=== PATIENT | male | born 1940 | race Caucasian/White ===

== ENCOUNTER 2017-12-26 23:29 | Observation (INO) | payer MEDICARE, OTHER ==
[~2017-12-26] VITALS: Ht 172.7 cm; Wt 95.3 kg
[2017-12-26 23:33] VITALS: BP 158/85; PULSE 108; RESP 17; TEMP 97.8; O2SAT 95
[2017-12-27] VITALS (9 sets, daily range): BP systolic 134–165; BP diastolic 69–89; PULSE 78–102; RESP 16–20; TEMP 96.5; O2SAT 94–99
--- NOTE | 2017-12-27 00:08 | PD ---
HPI Chief Complaint: Chest Pain Time Seen by Provider: 00:03 Travel History International Travel<30 days: No Contact w/Intl Traveler<30days: No Traveled to known affect area: No History of Present Illness HPI Complaint of abdominal discomfort and chest fluttering/tightness that started Friday. He has had a chest fluttering before unsure of diagnosis. Abdominal pain described as being pressure, 1 out of 10, intermittent, 30-60 minutes in duration, nonradiating, worse with cough a lot on his side, burping alleviates the pain. He denies fever, chills, nausea, vomiting, chest pain, edema, recent travel. For some shortness of breath with the abdominal pain. Patient states that he drinks 2-3 beers approximately 2-3 times a week with last drink being this evening. No chest pain currently in ER. Patient is anxious. PFSH Past Medical History Diabetes: Yes (metformin) Respiratory: Yes (COPD) Social History Tobacco Use: No Allergies-Medications (Allergen,Severity, Reaction): Coded Allergies: No Known Allergies (Unverified , 12/26/17) Reported Meds & Prescriptions Reported Meds & Active Scripts Active Reported Coq-10 (Coenzyme Q10 (Ubidecarenone)) 30 Mg Cap Aspirin 81 Mg Chew 81 Mg CHEW DAILY Azithromycin 500 Mg Tab 500 Mg PO DAILY Metformin (Metformin HCl) 1,000 Mg Tab 1,000 Mg PO BIDPC Ranitidine (Ranitidine HCl) 150 Mg Tab 150 Mg PO DAILY Omeprazole 10 Mg Cap 10 Mg PO DAILY Simvastatin 20 Mg Tab 20 Mg PO DAILY Lotensin (Benazepril HCl) 20 Mg Tab 20 Mg PO DAILY Review of Systems Except as stated in HPI: all other systems reviewed are Neg Physical Exam Narrative GENERAL: No acute distress. SKIN: Focused skin assessment warm/dry. HEAD: Atraumatic. Normocephalic. EYES: Pupils equal and round. No scleral icterus. No injection or drainage. ENT: No nasal bleeding or discharge. Mucous membranes pink and moist. NECK: Trachea midline. No JVD. CARDIOVASCULAR: Tachycardic. No murmur appreciated. RESPIRATORY: No accessory muscle use. Clear to auscultation. Breath sounds equal bilaterally. GASTROINTESTINAL: Abdomen soft, epigastric tenderness, obese. MUSCULOSKELETAL: No obvious deformities. No clubbing. No cyanosis. No edema. NEUROLOGICAL: Awake and alert. No obvious cranial nerve deficits. Motor grossly within normal limits. Normal speech. PSYCHIATRIC: Appropriate mood and affect; insight and judgment normal. Data Data Last Documented VS Vital Signs Date Time Temp Pulse Resp B/P (MAP) Pulse Ox O2 Delivery O2 Flow Rate FiO2 12/27/17 02:22 98 18 138/79 (98) 99 12/27/17 01:28 Room Air 12/26/17 23:33 97.8 Orders Orders Complete Blood Count With Diff (12/27/17 00:03) Comprehensive Metabolic Panel (12/27/17 00:03) Lipase (12/27/17 00:03) Lactic Acid (12/27/17 00:03) Prothrombin Time / Inr (Pt) (12/27/17 00:03) Act Partial Throm Time (Ptt) (12/27/17 00:03) Iv Access Insert/Monitor (12/27/17 00:03) Ecg Monitoring (12/27/17 00:03) Oximetry (12/27/17 00:03) Pantoprazole Inj (Protonix Inj) (12/27/17 00:15) Sodium Chloride 0.9% Flush (Ns Flush) (12/27/17 00:15) Electrocardiogram (12/27/17 00:03) B-Type Natriuretic Peptide (12/27/17 00:03) Ckmb (Isoenzyme) Profile (12/27/17 00:03) Magnesium (Mg) (12/27/17 00:03) Troponin I (12/27/17 00:03) Abdomen, Flat & Upright (12/27/17 ) Sodium Chloride 0.9% Flush (Ns Flush) (12/27/17 00:15) Thyroid Stimulating Hormone (12/27/17 00:05) Aspirin (Aspirin) (12/27/17 00:30) Sodium Chlorid 0.9% 500 Ml Inj (Ns 500 M (12/27/17 01:15) Ct Abd/Pel W Iv Contrast(Rout) (12/27/17 01:10) Lorazepam Inj (Ativan Inj) (12/27/17 01:30) Sodium Chlor 0.9% 1000 Ml Inj (Ns 1000 M (12/27/17 01:30) Iohexol 350 Inj (Omnipaque 350 Inj) (12/27/17 23:30) Chest, Single Ap (12/27/17 03:04) Place In Observation (12/27/17 03:15) Activity Bed Rest With Brp (12/27/17 03:15) Vital Signs (Adult) Q4H (12/27/17 03:15) Cardiac Rhythm .As Directed (12/27/17 03:15) Notify Dr: Other .PRN (12/27/17 03:15) Notify DrAlicia Parameters (12/27/17 03:15) Resp Oxygen Nasal Cannula (12/27/17 ) Diet Npo (12/27/17 Breakfast) Ckmb (Isoenzyme) Profile (12/27/17 03:15) Ckmb (Isoenzyme) Profile (12/27/17 06:15) Troponin I (12/27/17 03:15) Troponin I (12/27/17 06:15) Electrocardiogram (12/27/17 03:15) Electrocardiogram (12/27/17 06:15) ^ Obtain (12/27/17 03:15) Sodium Chloride 0.9% Flush (Ns Flush) (12/27/17 03:15) Sodium Chloride 0.9% Flush (Ns Flush) (12/27/17 09:00) Ondansetron Inj (Zofran Inj) (12/27/17 03:15) Aspirin (Aspirin) (12/27/17 09:00) Sales Representative [facility] / Telemetry PAUL.Q8H (12/27/17 03:15) Heparin Inj (Heparin Inj) (12/27/17 06:00) Bedside Glucose PAUL.CSUGAR (12/27/17 03:15) Blood Glucose Goal (Criteria) (12/27/17 03:15) Hypoglycemia 70 Mg/Dl Or < (12/27/17 03:15) Notify Dr: Other (12/27/17 03:15) Dextrose 50% In Rafia (Vial) Inj (D50w (Vi (12/27/17 03:15) Glucagon Inj (Glucagon Inj) (12/27/17 03:15) Insulin Aspart Supplemtl Scale (Novolog (12/27/17 08:00) Admit Order (Ed Use Only) (12/27/17 03:19) Lactic Acid Sepsis Protocol (12/27/17 03:20) Labs Laboratory Tests Test 12/27/17 00:10 White Blood Count 8.1 TH/MM3 Red Blood Count 4.36 MIL/MM3 Hemoglobin 14.7 GM/DL Hematocrit 43.1 % Mean Corpuscular Volume 98.9 FL Mean Corpuscular Hemoglobin 33.8 PG Mean Corpuscular Hemoglobin Concent 34.2 % Red Cell Distribution Width 12.3 % Platelet Count 216 TH/MM3 Mean Platelet Volume 10.6 FL Neutrophils (%) (Auto) 62.4 % Lymphocytes (%) (Auto) 27.6 % Monocytes (%) (Auto) 6.4 % Eosinophils (%) (Auto) 2.5 % Basophils (%) (Auto) 1.1 % Neutrophils # (Auto) 5.1 TH/MM3 Lymphocytes # (Auto) 2.2 TH/MM3 Monocytes # (Auto) 0.5 TH/MM3 Eosinophils # (Auto) 0.2 TH/MM3 Basophils # (Auto) 0.1 TH/MM3 CBC Comment AUTO DIFF Differential Comment AUTO DIFF CONFIRMED Prothrombin Time 10.0 SEC Prothromb Time International Ratio 1.0 RATIO Activated Partial Thromboplast Time 27.8 SEC Blood Urea Nitrogen 8 MG/DL Creatinine 0.89 MG/DL Random Glucose 142 MG/DL Total Protein 7.8 GM/DL Albumin 3.8 GM/DL Calcium Level 9.0 MG/DL Magnesium Level 1.8 MG/DL Alkaline Phosphatase 69 U/L Aspartate Amino Transf (AST/SGOT) 23 U/L Alanine Aminotransferase (ALT/SGPT) 38 U/L Total Bilirubin 0.3 MG/DL Sodium Level 140 MEQ/L Potassium Level 3.7 MEQ/L Chloride Level 106 MEQ/L Carbon Dioxide Level 24.9 MEQ/L Anion Gap 9 MEQ/L Estimat Glomerular Filtration Rate 83 ML/MIN Lactic Acid Level 2.7 mmol/L Total Creatine Kinase 58 U/L Troponin I LESS THAN 0.02 NG/ML B-Type Natriuretic Peptide 4 PG/ML Lipase 219 U/L MDM Medical Decision Making Medical Screen Exam Complete: Yes Emergency Medical Condition: Yes Interpretation(s) ECG: Sinus tachycardia 106, Q-wave in lead III; Labs: CBC, coags, lipase within normal limits; lactate elevated; cardiac enzymes within normal limits CXR: FINDINGS: The heart size is normal. There is mild increased density at the left base. The right lung is clear. No effusion is seen. CONCLUSION: Mild suspected atelectasis at the left lateral lung base. Last Impressions Abdomen/Pelvis CT 12/27/17 0110 Signed Impressions: CONCLUSION: 1. Diverticula being extremely numerous in the sigmoid region. 2. Hepatic steatosis. Abdomen X-Ray 12/27/17 0000 Signed Impressions: CONCLUSION: No acute abnormality is seen. Differential Diagnosis Peptic ulcer disease, pancreatitis, GERD, gastritis, ACS, cholecystitis, Narrative Course Patient presents emergency department complaining of chest fluttering and epigastric abdominal pain. Patient placed on monitor car operator, IV access obtained, EKG and labs and x-ray ordered. Patient also given 40 mg IV Protonix , ASA 325mg po. 01:19-> Patient's lactate is elevated, give 1 L IV normal saline and get CT of abdomen and pelvis.Given 1 mg IV ativan to facilitate CT scan as patient claustrophobic. Remained chest pain free in ER. Diagnosis Primary Impression: Chest pain Qualified Codes: R07.9 - Chest pain, unspecified Additional Impression: Abdominal pain Qualified Codes: R10.13 - Epigastric pain Admitting Information Admitting Physician Requests: Observation Condition: Stable Umm Vitale MD Dec 27, 2017 00:08
[2017-12-27] MEDS ORDERED: PANTOPRAZOLE SODIUM 40 MG VIAL IVP ONE (00:15)
[2017-12-27] MEDS ORDERED: SODIUM CHLORIDE 0.9% FLUSH 10 ML FLUSH IV FLUSH PRN ×3 (00:15→03:15)
[2017-12-27] MEDS ORDERED: ASPIRIN 325 MG TAB PO ONE (00:30)
[2017-12-27 00:34] LABS: AUTOMATED NEUTROPHIL # 5.1 TH/MM3 (1.8-7.7); BASOPHIL # 0.1 TH/MM3 (0-0.2); BASOPHIL % 1.1 % (0.0-2.0); EOSINOPHIL # 0.2 TH/MM3 (0-0.4); EOSINOPHIL % 2.5 % (0.0-4.0); HEMATOCRIT 43.1 % (39.0-51.0); HEMOGLOBIN 14.7 GM/DL (13.0-17.0); LYMPH % 27.6 % (9.0-44.0); LYMPHOCYTE # 2.2 TH/MM3 (1.0-4.8); MEAN CELL VOLUME 98.9 FL (80.0-100.0); MEAN CORPUSCULAR HEMOGLOBIN 33.8 PG (27.0-34.0); MEAN CORPUSCULAR HGB CONC 34.2 % (32.0-36.0); MEAN PLATELET VOLUME 10.6 FL (7.0-11.0); MONO % 6.4 % (0.0-8.0); MONOCYTE # 0.5 TH/MM3 (0-0.9); NEUT % 62.4 % (16.0-70.0); PLATELET COUNT 216 TH/MM3 (150-450); RED BLOOD COUNT 4.36 MIL/MM3 (4.50-5.90); RED CELL DISTRIBUTION WIDTH 12.3 % (11.6-17.2); WHITE BLOOD COUNT 8.1 TH/MM3 (4.0-11.0)
--- NOTE | 2017-12-27 00:44 | RADRPT ---
EXAM DATE: 12/27/2017 12:41 AM EDT AGE/SEX: 77 years / Male INDICATIONS: Bilateral upper quadrant abdominal pressure. CLINICAL DATA: This is the patient's initial encounter. Patient reports that signs and symptoms have been present for 2 days and indicates a pain score of 3/10. MEDICAL/SURGICAL HISTORY: Chronic obstructive pulmonary disease. Hypertension. Diabetes None. COMPARISON: No prior [facility] exams available for comparison. FINDINGS: Supine and upright views of the abdomen were performed. The abdominal bowel gas pattern is normal. No air-fluid levels are seen. No abnormal masses, calcifications, or organomegaly is seen. The visualiz ed lower lungs are clear. No evidence of free intraperitoneal gas. Spurs are seen in the lumbar spine . Phleboliths are seen in the left lower pelvis. CONCLUSION: No acute abnormality is seen. Electronically signed by: Fidel Emerson MD 12/27/2017 12:42 AM EDT
[2017-12-27 00:49] LABS: CHLORIDE 106 MEQ/L (98-107); SODIUM (NA) 140 MEQ/L (136-145)
[2017-12-27 00:54] LABS: ALBUMIN 3.8 GM/DL (3.4-5.0); BICARBONATE 24.9 MEQ/L (21.0-32.0); BLOOD UREA NITROGEN 8 MG/DL (7-18); GLUCOSE,RANDOM 142 MG/DL (74-106); MAGNESIUM 1.8 MG/DL (1.5-2.5)
[2017-12-27 00:56] LABS: ALT (GPT) 38 U/L (12-78); AST (GOT) 23 U/L (15-37); CREATININE 0.89 MG/DL (0.60-1.30); GLOMERULAR FILTRATION RATE 83 ML/MIN (>89)
[2017-12-27 00:58] LABS: TOTAL BILIRUBIN ADULT 0.3 MG/DL (0.2-1.0); TOTAL PROTEIN 7.8 GM/DL (6.4-8.2)
[2017-12-27 00:59] LABS: ALKALINE PHOSPHATASE 69 U/L (45-117)
[2017-12-27 01:02] LABS: TROPONIN I LESS THAN 0.02 NG/ML (0.02-0.05)
[2017-12-27] MEDS ORDERED: ASPI-516 CHEW (01:03)
[2017-12-27] MEDS ORDERED: LOTE20TA PO (01:03)
[2017-12-27] MEDS ORDERED: COQ-30CA2 (01:03)
[2017-12-27] MEDS ORDERED: OMEP10CA PO (01:03)
[2017-12-27] MEDS ORDERED: METF1000 PO (01:03)
[2017-12-27] MEDS ORDERED: SIMV20TA PO (01:03)
[2017-12-27] MEDS ORDERED: RANI150T PO (01:03)
[2017-12-27] MEDS ORDERED: AZIT500T2 PO (01:03)
[2017-12-27] MEDS ORDERED: SODIUM CHLORID 0.9% 500 ML INJ 500 ML IV ONE (01:15)
[2017-12-27] MEDS ORDERED: SODIUM CHLOR 0.9% 1000 ML INJ 1,000 ML IV ONE (01:30)
[2017-12-27] MEDS ORDERED: LORazepam 2 MG/ML VIAL IV PUSH ONE (01:30)
--- NOTE | 2017-12-27 02:44 | RADRPT ---
EXAM DATE: 12/27/2017 2:25 AM EDT AGE/SEX: 77 years / Male INDICATIONS: ABDOMINAL DISCOMFORT CLINICAL DATA: This is the patient's initial encounter. Patient reports that signs and symptoms have been present for 1 day and indicates a pain score of 1/10. MEDICAL/SURGICAL HISTORY: Diabetes. Chronic obstructive pulmonary disease. None. ORAL CONTRAST: No oral contrast ingested. RADIATION DOSE: 17.55 CTDI (mGy) COMPARISON: No prior [facility] exams available for comparison. TECHNIQUE: Multiple contiguous axial images were obtained through the abdomen and pelvis following b olus infusion of 82 ml Omnipaque 350 (iohexol) nonionic water-soluble contrast as a single exam dos e. No oral contrast ingested. Using automated exposure control and adjustment of the mA and/or kV ac cording to patient size, the radiation dose was kept as low as reasonably achievable to obtain optima l diagnostic quality images. FINDINGS: Lower Lungs: The visualized lower lungs are clear. Liver: There is decreased attenuation throughout the liver. There are calcifications seen at the left lobe of the liver. These are likely related to granulomas. Spleen: Homogeneous density without enlargement. Pancreas: Unremarkable without mass or calcification. Kidneys: Normal in size and shape. No evidence of mass or hydronephrosis. Adrenal Glands: Unremarkable. Aorta: There are scattered atherosclerotic calcifications. No aneurysm is seen. Bowel/Mesentery: There is a 3.5 cm duodenal diverticulum at the second portion of the duodenum. Ther e are colonic diverticula seen throughout the colon being most numerous at the sigmoid region. Surrou nding inflammatory change is not seen. Abdominal Wall: Intact. Retroperitoneum: No evidence of adenopathy in the retrocrural, para-aortic, or deep pelvic regions. Bladder: Contours are smooth. Reproductive Organs: No abnormal masses or calcifications seen. Inguinal: The inguinal region is unremarkable without evidence of adenopathy. Bony Structures: There is scattered degenerative change in the lumbar spine. CONCLUSION: 1. Diverticula being extremely numerous in the sigmoid region. 2. Hepatic steatosis. Electronically signed by: Fidel Emerson MD 12/27/2017 2:43 AM EDT
[2017-12-27] MEDS ORDERED: DEXTROSE 50% IN WATER 50 ML VIAL(D50) IV PUSH PRN (03:15)
[2017-12-27] MEDS ORDERED: ONDANSETRON HCL 4 MG/2 ML VIAL IV PUSH PRN (03:15)
[2017-12-27] MEDS ORDERED: GLUCAGON 1 MG/ML VIAL OTHER PRN (03:15)
--- NOTE | 2017-12-27 03:50 | RADRPT ---
EXAM DATE: 12/27/2017 3:37 AM EDT AGE/SEX: 77 years / Male INDICATIONS: Chest pain. CLINICAL DATA: This is the patient's initial encounter. Patient reports that signs and symptoms have been present for 2 days and indicates a pain score of 7/10. MEDICAL/SURGICAL HISTORY: . Chronic obstructive pulmonary disease. Hypertension. Diabetes Non e. COMPARISON: No prior [facility] exams available for comparison. FINDINGS: The heart size is normal. There is mild increased density at the left base. The right lung is clear. No effusion is seen. CONCLUSION: Mild suspected atelectasis at the left lateral lung base. Electronically signed by: Fidel Emerson MD 12/27/2017 3:49 AM EDT
[2017-12-27 04:23] LABS: TROPONIN I LESS THAN 0.02 NG/ML (0.02-0.05)
[2017-12-27] MEDS: HEPARIN SODIUM - SQ 10,000 UNITS/ML VIAL SQ SCH ×2 (06:12→13:01)
[2017-12-27 06:59] LABS: TROPONIN I LESS THAN 0.02 NG/ML (0.02-0.05)
[2017-12-27] MEDS: INSULIN ASPART SUPPLEMENTAL SCALE SQ SCH ×2 (08:00→12:00)
--- NOTE | 2017-12-27 08:18 | HHI.HP ---
[facility] Service [place] [facility] Primary Care Physician Sunday Forte MD Admission Diagnosis Chest pain, abdominal pain, diabetic Diagnoses: (1) Chest pain (2) Abdominal pain Chief Complaint: Chest pain/abdominal pain Travel History International Travel<30 Days: No Contact w/Intl Traveler <30 Da: No Traveled to Known Affected Are: No History of Present Illness This is a pleasant 77-year-old male patient with a known medical history of diabetes and COPD who complains of mid epigastric/chest pain that started yesterday. Patient states that over the past month he has seen his primary care doctor for upper respiratory congestion and cough, was placed on a Z-Stef initially for 5 days, the symptoms did improve initially and then a couple weeks later he developed a cough with yellow colored phlegm in placed on another round of azithromycin. Patient is supposed to finish his dose of antibiotics in 3 days. Patient also complains of midepigastric pressure, rated a 1 out of 10 on pain scale, does admit to associated shortness of breath and difficulty breathing with the pain, patient states the pain is intermittent and comes and goes with no known alleviating or aggravating factors. He denies ever having this type of sensation before. He denies following with a any commodity buyer. Denies ever having a previous stress test in the past. Patient denies any associated nausea, vomiting or diaphoresis with the pain. He does admit to having a colonoscopy a year ago with no significant findings. Does have history of hiatal hernia. Admits to drinking alcohol 3-4 beers a week. Does admit to a significant family history of cardiovascular disease. Denies any recent fevers, chills or dysuria. Review of Systems Constitutional: DENIES: Fatigue, Fever, Chills Respiratory: COMPLAINS OF: Cough, Sputum production, DENIES: Shortness of breath Cardiovascular: COMPLAINS OF: Chest pain, DENIES: Palpitations Gastrointestinal: COMPLAINS OF: Abdominal pain, DENIES: Black stools, Bloody stools, Constipation, Diarrhea, Nausea, Vomiting Musculoskeletal: DENIES: Joint pain Hematologic/lymphatic: DENIES: Bruising Immunologic/allergic: DENIES: Eczema Neurologic: DENIES: Abnormal gait Psychiatric: DENIES: Anxiety Except as stated in HPI: all other systems reviewed are Neg Past Family Social History Past Medical History Diabetes COPD Past Surgical History Denies any previous surgery. Reported Medications Active Reported Coq-10 (Coenzyme Q10 (Ubidecarenone)) 30 Mg Cap Aspirin 81 Mg Chew 81 Mg CHEW DAILY Azithromycin 500 Mg Tab 500 Mg PO DAILY Metformin (Metformin HCl) 1,000 Mg Tab 1,000 Mg PO BIDPC Ranitidine (Ranitidine HCl) 150 Mg Tab 150 Mg PO DAILY Omeprazole 10 Mg Cap 10 Mg PO DAILY Simvastatin 20 Mg Tab 20 Mg PO DAILY Lotensin (Benazepril HCl) 20 Mg Tab 20 Mg PO DAILY Allergies: Coded Allergies: No Known Allergies (Unverified , 12/26/17) Active Ordered Medications Current Medications Medications (Trade) Dose Ordered Sig/Osbaldo Route Start Time Stop Time Status Last Admin (NS Flush) 2 ml UNSCH PRN IV FLUSH 12/27/17 03:15 (NS Flush) 2 ml BID IV FLUSH 12/27/17 09:00 12/27/17 09:00 (Zofran Inj) 4 mg Q6H PRN IV PUSH 12/27/17 03:15 (Aspirin) 325 mg DAILY PO 12/27/17 09:00 12/27/17 09:11 (Heparin Inj) 5,000 units Q8HR SQ 12/27/17 06:00 12/27/17 06:12 (D50w (Vial) Inj) 50 ml UNSCH PRN IV PUSH 12/27/17 03:15 (Glucagon Inj) 1 mg UNSCH PRN OTHER 12/27/17 03:15 (NovoLOG SUPPLEMENTAL SCALE) 1 ACHS SLIDING SCALE SQ 12/27/17 08:00 (Prinivil) 20 mg DAILY PO 12/27/17 09:00 12/27/17 09:11 (Protonix) 20 mg DAILY PO 12/27/17 09:00 12/27/17 09:10 Non-Formulary Medication 150 mg DAILY PO 12/27/17 09:00 (Pravachol) 40 mg DAILY PO 12/27/17 09:00 12/27/17 09:11 Family History Significant family history of cardiovascular disease, mother had an NE and CABG in her 70s, 2 brothers and one sister also had NE in their 50s. Social History Denies any tobacco or illicit drug use. Patient admits to drinking 3-4 beers per week. Physical Exam Vital Signs Vital Signs Date Time Temp Pulse Resp B/P (MAP) Pulse Ox O2 Delivery O2 Flow Rate FiO2 12/27/17 07:29 83 20 134/69 (90) 96 12/27/17 06:20 78 16 163/85 (111) 99 Room Air 12/27/17 04:14 94 21 12/27/17 04:06 92 16 158/89 (112) 99 Room Air 12/27/17 02:22 98 18 138/79 (98) 99 12/27/17 01:28 102 16 137/89 (105) 99 Room Air 12/27/17 00:59 101 18 165/85 (111) 98 Room Air 12/27/17 00:02 101 18 96 Room Air 12/27/17 00:02 101 18 96 12/26/17 23:33 97.8 108 17 158/85 (109) 95 Physical Exam GENERAL: Well-developed, well-nourished patient in NAD. SKIN: Warm and dry. No rash. HEAD: Normocephalic. Atraumatic. EYES: Pupils equal and round. No scleral icterus. No injection or drainage. ENT: No nasal bleeding or discharge. Mucous membranes pink and moist. NECK: Supple. Trachea midline. CARDIOVASCULAR: Regular rate and rhythm. S1, S2 noted. No murmur appreciated. No chest pain to palpation RESPIRATORY: No accessory muscle use. Clear to auscultation. Breath sounds equal bilaterally. GASTROINTESTINAL: Abdomen soft, non-tender, nondistended. Normoactive bowel sounds x4. MUSCULOSKELETAL: No obvious deformities. Extremities without clubbing, cyanosis , or edema. NEUROLOGICAL: Awake and alert. No obvious cranial nerve deficits. Motor grossly within normal limits. 5/5 muscle strength in bilateral upper and lower extremities. Normal speech. PSYCHIATRIC: Appropriate mood and affect; insight and judgment normal. Laboratory Laboratory Tests Test 12/27/17 00:10 12/27/17 03:50 12/27/17 06:15 White Blood Count 8.1 Red Blood Count 4.36 Hemoglobin 14.7 Hematocrit 43.1 Mean Corpuscular Volume 98.9 Mean Corpuscular Hemoglobin 33.8 Mean Corpuscular Hemoglobin Concent 34.2 Red Cell Distribution Width 12.3 Platelet Count 216 Mean Platelet Volume 10.6 Neutrophils (%) (Auto) 62.4 Lymphocytes (%) (Auto) 27.6 Monocytes (%) (Auto) 6.4 Eosinophils (%) (Auto) 2.5 Basophils (%) (Auto) 1.1 Neutrophils # (Auto) 5.1 Lymphocytes # (Auto) 2.2 Monocytes # (Auto) 0.5 Eosinophils # (Auto) 0.2 Basophils # (Auto) 0.1 CBC Comment AUTO DIFF Differential Comment AUTO DIFF CONFIRMED Prothrombin Time 10.0 Prothromb Time International Ratio 1.0 Activated Partial Thromboplast Time 27.8 Blood Urea Nitrogen 8 Creatinine 0.89 Random Glucose 142 Total Protein 7.8 Albumin 3.8 Calcium Level 9.0 Magnesium Level 1.8 Alkaline Phosphatase 69 Aspartate Amino Transf (AST/SGOT) 23 Alanine Aminotransferase (ALT/SGPT) 38 Total Bilirubin 0.3 Sodium Level 140 Potassium Level 3.7 Chloride Level 106 Carbon Dioxide Level 24.9 Anion Gap 9 Estimat Glomerular Filtration Rate 83 Lactic Acid Level 2.7 1.3 Total Creatine Kinase 58 51 50 Troponin I LESS THAN 0.02 LESS THAN 0.02 LESS THAN 0.02 B-Type Natriuretic Peptide 4 Lipase 219 Thyroid Stimulating Hormone 3rd Gen 3.070 Result Diagram: 12/27/17 0010 12/27/17 0010 Imaging Last Impressions Chest X-Ray 12/27/17 0304 Signed Impressions: CONCLUSION: Mild suspected atelectasis at the left lateral lung base. Abdomen/Pelvis CT 12/27/17 0110 Signed Impressions: CONCLUSION: 1. Diverticula being extremely numerous in the sigmoid region. 2. Hepatic steatosis. Abdomen X-Ray 12/27/17 0000 Signed Impressions: CONCLUSION: No acute abnormality is seen. Septic Shock Reassessment Septic shock perfusion: reassessment completed Caprini VTE Risk Assessment Caprini VTE Risk Assessment: Mod/High Risk (score >= 2) Caprini Risk Assessment Model Point Value = 1 Point Value = 2 Point Value = 3 Point Value = 5 Age 41-60 Minor surgery BMI > 25 kg/m2 Swollen legs Varicose veins or History of unexplained or recurrent spontaneous Oral contraceptives or hormone replacement Sepsis (< 1 month) Serious lung disease, including pneumonia (< 1 month) Abnormal pulmonary function Acute myocardial infarction Congestive heart failure (< 1 month) History of inflammatory bowel disease Medical patient at bed rest Age 61-74 Arthroscopic surgery Major open surgery (> 45 min) Laparoscopic surgery (> 45 min) Malignancy Confined to bed (> 72 hours) Immobilizing plaster cast Central venous access Age >= 75 History of VTE Family history of VTE Factor V Leiden Prothrombin [id number] Lupus anticoagulant Anticardiolipin antibodies Elevated serum homocysteine Heparin-induced thrombocytopenia Other congenital or acquired thrombophilia Stroke (< 1 month) Elective arthroplasty Hip, pelvis, or leg fracture Acute spinal cord injury (< 1 month) Prophylaxis Regimen Total Risk Factor Score Risk Level Prophylaxis Regimen 0-1 Low Early ambulation 2 Moderate Order ONE of the following: *Sequential Compression Device (SCD) *Heparin 5000 units SQ BID 3-4 Higher Order ONE of the following medications: *Heparin 5000 units SQ TID *Enoxaparin/Lovenox 40 mg SQ daily (WT < 150 kg, CrCl > 30 mL/min) *Enoxaparin/Lovenox 30 mg SQ daily (WT < 150 kg, CrCl > 10-29 mL/min) *Enoxaparin/Lovenox 30 mg SQ BID (WT < 150 kg, CrCl > 30 mL/min) AND/OR *Sequential Compression Device (SCD) 5 or more Highest Order ONE of the following medications: *Heparin 5000 units SQ TID (Preferred with Epidurals) *Enoxaparin/Lovenox 40 mg SQ daily (WT < 150 kg, CrCl > 30 mL/min) *Enoxaparin/Lovenox 30 mg SQ daily (WT < 150 kg, CrCl > 10-29 mL/min) *Enoxaparin/Lovenox 30 mg SQ BID (WT < 150 kg, CrCl > 30 mL/min) AND *Sequential Compression Device (SCD) Assessment and Plan Problem List: (1) Chest pain ICD Code: R07.9 - Chest pain, unspecified Status: Acute Plan: Patient has been admitted to the chest pain center for observation. Serial EKGs and serial troponins have been ordered for ruling out ACS purposes. Troponin trend flat. EKG reviewed showing normal sinus rhythm with controlled heart rate, no ST changes. Patient was given aspirin in ED. pressure has somewhat resolved. Was also given Protonix for abdominal pain. She does have a significant family medical history of cardiovascular disease, does admit to a history of smoking quit in 1967. Also has diabetes and hyperlipidemia. Denies ever having a stress test in the past. Will undergo Lexiscan this morning to further rule out any ischemia. Further treatment plan and will depend on nuclear imaging results. Will continue home statin. (2) Abdominal pain ICD Code: R10.9 - Unspecified abdominal pain Status: Acute Plan: Will continue Protonix. Add Maalox. Dominant/pelvis CT reviewed showing diverticula. No diverticulitis. No acute findings. (3) Upper respiratory infection ICD Code: J06.9 - Acute upper respiratory infection, unspecified Plan: Patient is being treated outpatient with azithromycin. We will continue course of antibiotics. Chest x-ray showing mild atelectasis. No pneumonia. (4) Hypertension ICD Code: I10 - Essential (primary) hypertension Plan: Chronic. We will continue home lisinopril. Mildly elevated, will continue to monitor blood pressure trends. (5) Diabetes ICD Code: E11.9 - Type 2 diabetes mellitus without complications Plan: Will Accu-Chek before meals at bedtime, sliding scale, cover as needed. Monitor for hypoglycemia. DVT prophylaxis: SCDs. Heparin. Problem Qualifiers (1) Chest pain: Qualified Codes: R07.9 - Chest pain, unspecified (2) Abdominal pain: Qualified Codes: R10.13 - Epigastric pain Christin Zambrano Dec 27, 2017 08:18
[2017-12-27] MEDS ORDERED: LISINOPRIL 20 MG TAB PO SCH (09:00)
[2017-12-27] MEDS ORDERED: PANTOPRAZOLE SOD 20 MG DELAYED RELEASE TAB PO SCH (09:00)
[2017-12-27] MEDS ORDERED: NON-FORMULARY DRUG (Ranitidine 150 MG) PO SCH (09:00)
[2017-12-27] MEDS ORDERED: PRAVASTATIN SOD 40 MG TAB PO SCH (09:00)
[2017-12-27] MEDS ORDERED: SODIUM CHLORIDE 0.9% FLUSH 10 ML FLUSH IV FLUSH SCH (09:00)
[2017-12-27] MEDS ORDERED: ASPIRIN 325 MG TAB PO SCH (09:00)
[2017-12-27] MEDS ORDERED: ALUMINUM/MAGNESIUM/SIMETH 30 ML CUP PO ONE (11:15)
[2017-12-27] MEDS ORDERED: AZITHROMYCIN 250 MG TAB PO SCH (12:00)
[2017-12-27] MEDS ORDERED: REGADENOSON INJ 0.4 MG/5 ML SYR IV ONE (12:00)
--- NOTE | 2017-12-27 13:01 | RADRPT ---
EXAM DATE: 12/27/2017 12:53 PM EDT AGE/SEX: 77 years / Male INDICATIONS:Angina. . Substernal chest pain. CLINICAL DATA: This is the patient's initial encounter. Patient reports that signs and symptoms have been present for 1 day and indicates a pain score of 0/10. MEDICAL/SURGICAL HISTORY: Diabetes mellitus type II. Chronic obstructive pulmonary disease. H ypertension. None. COMPARISON: No prior [facility] exams available for comparison. DOSE: 8.5 mCi Tc 99m Myoview at rest 27.2 mCi [id number] at stress 0.4 mg Lexiscan STRESS SYMPTOMS: Dyspnea and headache. EJECTION FRACTION: 62 % TECHNIQUE: The patient underwent pharmacologic stress with infusion of prescribed dose. Continuous ECG tracing was monitored during stress. Gated SPECT imaging was performed after stress and conventi onal SPECT imaging was performed at rest. The examination was performed on a SPECT/CT scanner, both attenuation and non-corrected datasets were reviewed. FINDINGS: Distribution: The maximum perfused segment at stress is in the anterior wall. Perfusion Study: The pattern of perfusion at stress is within normal limits. Gated Study: There are intact wall motion and wall thickening without hypokinetic or dyskinetic segm ents. The ejection fraction is calculated at 62%. RISK CATEGORY: Low (<1% Annual Motality Rate) CONCLUSION: No significant stress-induced ischemia demonstrated. Normal wall motion. Electronically signed by: Fidel Morfin MD 12/27/2017 12:59 PM EDT
--- NOTE | 2017-12-27 13:06 | HHI.DCPOC ---
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 CBC and BMP unremarkable. Patient may need to undergo a upper endoscopy for evaluation secondary to symptoms of abdominal pain. Patient advised to avoid acidic foods , NSAIDs. Encouraged continued use of ranitidine and omeprazole as previously prescribed patient. No abnormality seen on imaging. Abdominal x-ray negative. Abdominal pelvis CT showing numerous diverticula in the sigmoid region. Goals to Promote Your Health * To prevent worsening of your condition and complications * To maintain your health at the optimal level Directions to Meet Your Goals Take your medications as prescribed Follow your dietary instruction Follow activity as directed Keep your appointments as scheduled Take your immunizations and boosters as scheduled If your symptoms worsen call your PCP, if no PCP go to Urgent Care Center or Emergency Room Smoking is Dangerous to Your Health. Avoid second hand smoke Call the 24-hour hour crisis hotline for domestic abuse at Christin Zambrano Dec 27, 2017 13:06
--- NOTE | 2017-12-27 14:28 | EKG ---
Date Performed: 12/27/2017 Time Performed: 00:14:09 PTAGE: 77 years EKG: SINUS TACHYCARDIA Otherwise within normal limits NO PREVIOUS TRACING DOCTOR: Mehrdad Pearce Interpretating Date/Time 12/27/2017 14:27:58
--- NOTE | 2017-12-27 14:29 | EKG ---
Date Performed: 12/27/2017 Time Performed: 03:42:12 PTAGE: 77 years EKG: Sinus rhythm NORMAL ECG PREVIOUS TRACING : 12/27/2017 00.14 Since previous tracing, heart rate is somewhat slower, othe rwise no significant change. DOCTOR: Mehrdad Pearce Interpretating Date/Time 12/27/2017 14:28:42
--- NOTE | 2017-12-27 14:29 | EKG ---
Date Performed: 12/27/2017 Time Performed: 06:54:28 PTAGE: 77 years EKG: Sinus rhythm NORMAL ECG PREVIOUS TRACING : 12/27/2017 03.42 Since previous tracing, no significant change. DOCTOR: Mehrdad Pearce Interpretating Date/Time 12/27/2017 14:28:57
--- NOTE | 2017-12-27 14:52 | TR ---
Date Performed: 12/27/2017 Time Performed: 11:49:05 DOCTOR: Mehrdad Pearce DRUG LIST: CLINICAL HISTORY: REASON FOR TEST: REASON FOR ENDING: OBSERVATION: CONCLUSION: COMMENTS: Lexiscan stress test was performed under standard four minute protocol. Radionuclide was injected one minute prior to ending the test. No electrocardiographic abormalities were present t o suggest ischemia. Nuclear imaging and interpretation are pending.
[2017-12-27] MEDS ORDERED: IOHEXOL 350 MG/ML 10 ML VIAL (for RAD DIAG) IVCONTRAST ONE (23:30)
== END 2017-12-27 13:39 | disposition home or self-care (01) ==
LOC: PHED 23:29 → PHEDA 12-27 03:20 → PH3A 12-27 07:41
PROVIDERS: ADMIT Hospitalist; ATTEND Hospitalist
DX: R07.89 Other chest pain (principal); R10.13 Epigastric pain; R06.02 Shortness of breath; K57.30 Diverticulosis of large intestine without perforation or abscess without bleeding; J06.9 Acute upper respiratory infection, unspecified; I10 Essential (primary) hypertension; E78.5 Hyperlipidemia, unspecified; R00.0 Tachycardia, unspecified; J98.11 Atelectasis; E11.9 Type 2 diabetes mellitus without complications; J44.9 Chronic obstructive pulmonary disease, unspecified; K76.0 Fatty (change of) liver, not elsewhere classified; F40.240 Claustrophobia; Z87.891 Personal history of nicotine dependence; Z82.49 Family history of ischemic heart disease and other diseases of the circulatory system; Z79.899 Other long term (current) drug therapy; Z79.82 Long term (current) use of aspirin
CPT/HCPCS: 71045; 74019; 74177; 78452; 80053; 82550; 82948; 83605; 83690; 83735; 83880; 84443; 84484; 85025; 85610; 85730; 93005; 93017; 96361; 96372; 96374; 96375; 99285; A9502; C9113; G0378; J1644; J2060; J2785; J7030; Q9967